=== PATIENT | female | born 1950 | race Two or more races ===

== ENCOUNTER 2023-01-09 08:36 | Inpatient (IN) | payer OTHER ==
[~2023-01-09] VITALS: Ht 152.4 cm; Wt 63.5 kg
[2023-01-10] MEDS ORDERED: ATORVASTATIN CA20 MG PO (11:27)
[2023-01-10] MEDS ORDERED: LOSAR PO (11:28)
[2023-01-10] MEDS ORDERED: NORVASC2.5 M1 PO (11:28)
[2023-01-14] MEDS ORDERED: LOSARTAN-HCTZ1 EACH (11:18)
[2023-01-15] MEDS ORDERED: IBUPROFEN600 MG PO (06:45)
[2023-01-15] MEDS ORDERED: GABAPENTIN300 MG PO (06:45)
[2023-01-15] MEDS ORDERED: MAXFE CAPLET1 EAC1 PO (06:45)
[2023-01-15] MEDS ORDERED: BACTRIM DS TAB1 EACH PO (06:46)
== END 2023-01-15 11:05 | disposition home or self-care (01) | DRG 743 ==
LOC: O/R 01-14 06:55 → SURG 01-14 08:15 → OB/GYN 01-14 13:32
PROVIDERS: ADMIT Obstetrics & Gynecology Gynecology; ATTEND Obstetrics & Gynecology Gynecology
PROC: 0JQC0ZZ Repair Pelvic Region Subcutaneous Tissue and Fascia, Open Approach (ICD-10-PCS; 2023-01-14)
PROC: 0USG7ZZ Reposition Vagina, Via Natural or Artificial Opening (ICD-10-PCS; 2023-01-14)
PROC: 0UT97ZZ Resection of Uterus, Via Natural or Artificial Opening (ICD-10-PCS; principal; 2023-01-14 11:45)
DX: N81.3 Complete uterovaginal prolapse (principal); Z20.822 Contact with and (suspected) exposure to COVID-19